=== PATIENT | male | born 1955 | race Caucasian/White ===

== ENCOUNTER 2016-03-16 07:07 | Emergency (ER) | payer MEDICAID ==
[2016-03-16] MEDS ORDERED: LACTATED RINGERS 1,000 ML ONE (07:44)
[2016-03-16 07:57] LABS: ABSOLUTE NEUTROPHIL COUNT 1.9 K/mm3 (1.8-7.7); BASO % 0.6 % (0.2-1.0); EOS # 0.1 (0.0-0.5); EOS % 1.9 % (0.9-2.9); HEMATOCRIT 43.7 % (32.0-52.0); HEMOGLOBIN 14.2 gm/l (14.0-18.0); IMM NEUT% 0.4 % (0-1); LYMPH # 2.4 (1.0-4.8); LYMPH % 45.6 % (15-45); MEAN CELL VOLUME 78.9 fl (80.0-94.0); MEAN CORPUSCULAR HEMOGLOBIN 25.6 pg (27.0-31.0); MEAN CORPUSCULAR HGB CONC 32.5 g/dl (33.0-37.0); MEAN PLATELET VOLUME 9.4 fl (7.4-10.4); MONO # 0.8 (0.0-0.8); NEUT % 36.5 % (43-75); PLATELET COUNT 170 K/mm3 (130-400); RED CELL DISTRIBUTION WIDTH 18.6 % (11.5-14.5)
[2016-03-16 08:40] LABS: ALB/GLOB RATIO 1.1 (>1.0); ALBUMIN 3.9 gm/dL (3.5-5.7); CALCIUM 9.3 mg/dL (8.6-10.3)
--- NOTE | 2016-03-16 08:48 | CT ---
HEAD CT WITHOUT CONTRAST HISTORY: Patient found down, facial laceration, head and neck pain. No intravenous contrast administered. Contiguous axial images acquired from skull base to vertex. COMPARISON: 10/30/2015 BRAIN VOLUME: Moderate diffuse volume loss, unchanged VENTRICULAR SIZE: No gross ventriculomegaly. FOCAL MASS EFFECT:None. ACUTE INTRACRANIAL HEMORRHAGE:None. WHITE MATTER: Minor periventricular hypoattenuation compatible with microvascular disease. CALVARIUM:Grossly intact. VISIBLE PARANASAL SINUSES AND MASTOID AIR CELLS: No mastoid effusion. Minor ethmoid sinus mucosal thickening. MAXILLOFACIAL STRUCTURES: Evidence of remote right zygomatic arch injury. SOFT TISSUES: Left frontal/supraorbital soft tissue injury/laceration. INTRACRANIAL VASCULATURE: Minor atherosclerotic calcifications. IMPRESSION: 1. Left frontal/supraorbital soft tissue injury without mass effect, depressed calvarial fracture, or acute intracranial hemorrhage identified. 2. Changes of volume loss, microvascular disease, and intracranial atherosclerotic disease. 3. Evidence of remote right zygomatic arch injury. Results were electronically transmitted to the electronic medical record at 03/08/2016 at 0845 hours.
--- NOTE | 2016-03-16 08:53 | CT ---
CERVICAL SPINE CT WITHOUT CONTRAST HISTORY: Patient found down, neck pain. No intravenous contrast administered contiguous axial images acquired from the posterior fossa to the T3 level. COMPARISON: 10/20/2015. FINDINGS ALIGNMENT: Straightening of normal lordosis. Minor retrolisthesis at C5-6, likely exaggerated by osteophyte formation.. COMPRESSION DEFORMITY: Redemonstration of endplate herniations and adjoining C6 and C7 endplates. No new compression deformity.. DISC SPACES: Severe disc space narrowing at C4-5 through C6-7 levels. FRACTURE: No displaced fracture. DEGENERATIVE CHANGE: Multilevel disc osteophyte ridge formation most notable at the C4-5 and C5 5 C6 levels, apparently resulting in moderate degrees of cord deformity. Disc protrusions at C2-3 and C3-4.. FORAMINAL NARROWING: Moderate to severe foraminal narrowing at the C4-5 and C5-6 levels. PARASPINAL SOFT TISSUES: Airway patent. No gross mass effect. Carotid bifurcation calcifications. LUNG APICES: Apical bullous change. IMPRESSION: 1. Prominent changes of cervical spondylosis, most notable at the C4-5 and C5-6 levels, with disc osteophyte ridge formation results in cord deformity and moderate to severe foraminal narrowing. However, this is a grossly unchanged appearance when compared to October 2015 injury with no new malalignment or cervical spine fracture identified. 2. Apical bullous changes of the lungs.. Results were electronically transmitted to the electronic medical record at 03/16/2016 at 0850 hours.
[2016-03-16 09:25] LABS: URINE BILIRUBIN NEGATIVE (NEGATIVE); URINE BLOOD NEGATIVE (NEGATIVE); URINE GLUCOSE (UA) NEGATIVE (NEGATIVE); URINE LEUKOCYTE ESTERASE NEGATIVE (NEGATIVE); URINE NITRITE NEGATIVE (NEGATIVE); URINE PROTEIN NEGATIVE (NEGATIVE); URINE UROBILINOGEN NORMAL (0-1 mg/dl)
[2016-03-16 09:30] LABS: URINE APPEARANCE CLEAR; URINE COLOR YELLOW
[2016-03-16] MEDS ORDERED: DIPHTH,PERTUSS(ACELL),TET VAC 0.5 ML VIAL IM V ONE (09:53)
== END 2016-03-16 10:22 | disposition home or self-care (01) ==
LOC: ED 07:07
DX: S01.112A Laceration without foreign body of left eyelid and periocular area, initial encounter (principal); R55 Syncope and collapse; S09.90XA Unspecified injury of head, initial encounter; M54.2 Cervicalgia; Z23 Encounter for immunization; W19.XXXA Unspecified fall, initial encounter; Y92.9 Unspecified place or not applicable
CPT/HCPCS: 90715; 83690; 85025; 80053; 80307; 81003; 84484; 72125; 70450; 90471; 99284 ×2; 12013 ×2; 96360; 96361; 36415; 93005; J7120